=== PATIENT | female | born 1995 | race Caucasian/White ===

== ENCOUNTER → 2022-09-30 08:19 | Outpatient (CLI) | payer OTHER, SELFPAY ==
--- NOTE | ~2022-09-30 | US_ITS ---
EXAMINATION: US breast RT limited HISTORY: Palpable lump of the lower outer quadrant of the right breast TECHNIQUE: Targeted high-resolution ultrasound of the right breast is performed in the area of clinic al concern. FINDINGS: There is a 3.2 x 1.3 cm oval, circumscribed, parallel, hypoechoic mass with no posterior fe atures and mild internal vascularity at the 8:00 location 6.5 cm from the nipple corresponding to the palpable abnormality of concern. No additional cystic or solid mass is identified. 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 Howev er, given the size of the lesion, ultrasound-guided biopsy is recommended. BI-RADS category 4, suspicious findings. Reviewed, dictated and finalized at location A. 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 However, given the size of the lesion, ultrasound-guided biops y is recommended. BI-RADS category 4, suspicious findings.
== END ==
PROVIDERS: PCP Nurse Practitioner; Visit Provider Nurse Practitioner
DX: N63.10 Unspecified lump in the right breast, unspecified quadrant (principal); R92.8 Other abnormal and inconclusive findings on diagnostic imaging of breast
CPT/HCPCS: 76642

== ENCOUNTER 2024-01-21 15:54 | Emergency (ER) | payer OTHER, SELFPAY ==
--- NOTE | ~2024-01-21 | XR_ITS ---
EXAMINATION: XR elbow LT min 3V DATE: 01/21/2024 16:19 INDICATION: Left elbow injury. Pain. TECHNIQUE: 4 views of left elbow were obtained. COMPARISON: None. FINDINGS: Bone alignment is normal. There is an intra-articular fracture of head of radius with less than 1 mm step-off at the articular surface. Joint spaces are normal. There is an elbow joint effusio n. IMPRESSION: 1. Radial head fracture. 2. Elbow joint effusion. Reviewed, dictated and finalized at location E.
--- NOTE | ~2024-01-21 | XR_ITS ---
EXAMINATION: XR wrist LT min 3V DATE: 01/21/2024 16:19 INDICATION: Left wrist injury and pain. TECHNIQUE: 4 views of left wrist were obtained. COMPARISON: None. FINDINGS: Bone alignment is normal. No fracture. Joint spaces are normal. IMPRESSION: 1. Normal left wrist. Reviewed, dictated and finalized at location E. IMPRESSION: 1. Normal left wrist.
--- NOTE | 2024-01-21 16:02 | ED.GENADULT ---
HPI - General Adult General Chief complaint: Extremity Injury, Upper Stated complaint: LT elbow injury Time Seen by Provider: 01/21/24 16:01 Source: patient, RN notes reviewed and old records reviewed Mode of arrival: ambulatory Limitations: no limitations History of Present Illness HPI narrative: 28-year-old female to [facility] for complaint left elbow and left wrist pain. Patient states that she was exiting a vehicle with roller blades on when she lost her balance and fell backward onto her left outstretched hand. Patient reports taking ibuprofen prior to arrival. Patient denies numbness, tingling, prior injury, pertinent medical history, or striking head during fall. Patient endorses limited range of motion at left elbow. Patient in mild distress in exam room due to pain. Respirations even and nonlabored. Patient in no acute distress. Related Data Home Medications Medication Instructions Recorded Confirmed segesterone acet 0.15 mg-ethinyl 1 vag ring vaginal USEASDIRECTD 01/21/24 01/21/24 estradiol 0.013 mg/24 hr vaginal ring ([place]) Allergies Allergy/AdvReac Type Severity Reaction Status Date / Time naproxen Allergy Unknown Verified 01/21/24 16:08 Review of Systems Review of Systems: All systems reviewed & are unremarkable except as noted in HPI and below Constitutional: Constitutional: Reports no additional constitutional complaints Eyes: Eyes: Reports no additional eye complaints ENT: Reports system reviewed and no additional complaints, except as documented Cardiovascular: Cardiovascular: Reports no additional cardiovascular complaints, Denies chest pain and Denies dyspnea Respiratory: Respiratory: Reports no additional respiratory complaints, Denies cough and Denies dyspnea Musculoskeletal: Musculoskeletal: Reports no additional musculoskeletal complaints Neurologic: Reports system reviewed and no additional complaints, except as documented Psychiatric: Psychiatric: Reports no additional psychiatric complaints PMFSH Comments At the time of my signature, I reviewed and agree with the nursing past medical, surgical, social, and family history. There is no relevant family history pertinent to the patient complaint. Exam Const: General: cooperative, healthy appearing, comfortable, no acute distress, alert and well nourished Nutritional Appearance: well nourished Orientation/consciousness: patient oriented x3 Limitations: no limitations HENMT: Head: normal to inspection Ears: external ears normal Face/Nose/Sinus: Normal external nose present, Normal nares present, normal facial exam, No erythema and No edema Face and sinus: normal facial exam, no erythema and no edema Mouth: Yes Normal oral and palatal mucosa present Eyes: General: appearance normal, both eyes and all related structures Neck: Neck: normal visual inspection, full ROM and no meningeal signs Lymphatic: no lymphadenopathy noted and no lymphedema noted Chest: Chest palpation & inspection: normal inspection of the chest Resp: Effort & Inspection: normal respiratory effort and able to speak in complete sentences Auscultation: clear to auscultation bilaterally Cardio: Jugular venous distension: no JVD Rate: regular rate Rhythm: regular rhythm Back/Spine/Pelvis: Cervical Spine: cervical ROM normal Skin: General skin exam: normal color, no rashes or lesions noted and turgor normal Neuro: General: patient oriented x3, gait normal, moves all extremities and no meningeal signs Speech: normal speech Gait exam (Neuro): Normal gait present Extrem: General: normal to inspection, full ROM and capillary refill normal Psych: Appearance: grossly normal and well kempt Course Course Emergency Course: Some parts of this dictation were generated by voice recognition software and may contain typographical and/or grammatical inaccuracies. Level of Care: Express Care Visit Vital Signs Vital signs: Vital Signs Temperat
[2024-01-21 16:24] VITALS: BP 121/91; PULSE 95; RESP 16; TEMP 36.1; O2SAT 100
== END 2024-01-21 16:53 | disposition home or self-care (01) ==
PROVIDERS: Emergency Provider Nurse Practitioner Family
DX: S52.122A Displaced fracture of head of left radius, initial encounter for closed fracture (principal); V00.111A Fall from in-line roller-skates, initial encounter; S63.502A Unspecified sprain of left wrist, initial encounter
CPT/HCPCS: 29105; 73080; 73110; 99214; A4565; G0463

== ENCOUNTER 2024-04-09 08:00 | Outpatient (RCR) | payer OTHER, SELFPAY ==
--- NOTE | 2024-02-09 09:34 | OTOPEVAL1 ---
Assessment and note entered by Favio Dumont, FAY/David, CHT OT Evaluation Information 02/09/24 Diagnosis Displaced fracture of head of left radius Onset 01/21/24 Subjective Information Patient fell while roller skating, sustaining a fracture to the proximal radius. She reports difficulties straightening her elbow and rotating her forearm. At her follow up appointment yesterday, she was instructed to remove her sling and to try to let the arm straighten as much as possible. She reports feeling some muscle tightness and tension in the shoulder and forearm. No pain at rest. Intermittent tingling in the ulnar 2 digits when trying to straighten the arm. Assessment OT Clinical Summary Patient referred to OT ~2.5 weeks following left radial head fracture. She presents with left elbow joint stiffness and gross muscle tightness. Instructed patient in active and passive ROM HEP today for the shoulder, elbow, forearm, wrist, and hand. She demonstrates excellent understanding. She also demonstrates improvements in her motion after just 1 set of the exercises. Plan for continued follow up for use of paraffin/thermal modalities, manual therapy, therapeutic exercise, therapeutic activities, and HEP progression to facilitate optimal functional ROM and flexibility of her left UE. Plan of Care Interventions Therapeutic Exercise,Manual Therapy,Therapeutic Activities,Hot Pack/Cold Pack,Paraffin OT Services Indicated Yes Treatment Frequency and 2x/week for 8 visits Duration These treatments will address the objective and functional deficits as defined above. The patient will be advanced safely and appropriately in order for the patient to progress towards his/her prior level of function. Additional exercises will be introduced and as well as a comprehensive home exercise program upon discharge, if needed, ?to ensure carryover of functional gains achieved in the clinic. This treatment plan has been reviewed and agreement upon by the patient.
--- NOTE | 2024-02-09 09:38 | OPREHPOC ---
Outpatient Therapy Plan of Care This is a Multidisciplinary Plan of Care that may contain components documented by all disciplines (PT, OT, and ST.) OT Problem 1 OT Problem #1 Knowledge Deficit OT Goal 1 Goal / Goal Update 1. Patient to be independent with instructed materials. Target Visit 8 OT Problem 2 OT Problem #2 Impaired Range of Motion OT Goal 1 Goal / Goal Update Patient to improve functional flexibility of the left UE to facilitate return to normal functioning with ADLs: 1. shoulder flexion, abduction, and external rotation to be symmetrical to the right UE with ROM assessment 2. elbow flexion to 135 degrees 3. elbow extension to -5 degree extension lag 4. forearm supination to 50 degrees Target Visit 8
--- NOTE | 2024-03-05 12:08 | OTOPPROG ---
Assessment and note entered by Favio Dumont, FAY/David, CHT OT Progress Update 03/05/24 Assessment Status Progress Diagnosis Displaced fracture of head of left radius Onset 01/21/24 Subjective Information Patient reports improvements, feeling less stiffness. She reports making progress in all joints of her left UE - shoulder, elbow, and forearm are moving better. She continues to be under restriction of no use of her left hand an no passive elbow extension yet. She returns for MD follow up this week. She continues to report intermittent paresthesia in the ulnar 2 digits when fully extending the arm, but that overall it' s not as bad. She has had 2 instances of catching in the elbow, reports no pain with this, just uncomfortable. She also leaves for [place] Mar 10 and returns Mar 19. Assessment OT Clinical Summary Patient referred to OT following left radial head fracture. She has made excellent progress with therapy, improvements noted in all ranges of elbow flexion/extension and forearm rotation. She has been experiencing some ulnar nerve symptoms and has tenderness of the nerve at the cubital tunnel as well as proximally at the intermuscular septum. She is performing self soft tissue mobilization as well as ulnar nerve glides for this. Continued skilled OT indicated for use of paraffin/thermal modalities, manual therapy, therapeutic exercise, therapeutic activities, and HEP progression to facilitate optimal functional ROM and flexibility of her left UE. Plan of Care Interventions Therapeutic Exercise,Manual Therapy,Therapeutic Activities,Hot Pack/Cold Pack,Paraffin OT Services Indicated Yes Treatment Frequency and 1-2x/week for 6 visits Duration These treatments will address the objective and functional deficits as defined above. The patient will be advanced safely and appropriately in order for the patient to progress towards his/her prior level of function. Additional exercises will be introduced and as well as a comprehensive home exercise program upon discharge, if needed, ?to ensure carryover of functional gains achieved in the clinic. This treatment plan has been reviewed and agreement upon by the patient.
--- NOTE | 2024-03-05 12:08 | OPREHPOC ---
Outpatient Therapy Plan of Care This is a Multidisciplinary Plan of Care that may contain components documented by all disciplines (PT, OT, and ST.) OT Problem 1 OT Problem #1 Knowledge Deficit OT Goal 1 Goal / Goal Update 1. Patient to be independent with instructed materials. ---OT POC UPDATE 03/05/24--- 1. Met, continue as HEP is progressed Target Visit 14 OT Problem 2 OT Problem #2 Impaired Range of Motion OT Goal 1 Goal / Goal Update Patient to improve functional flexibility of the left UE to facilitate return to normal functioning with ADLs: 1. shoulder flexion, abduction, and external rotation to be symmetrical to the right UE with ROM assessment 2. elbow flexion to 135 degrees 3. elbow extension to -5 degree extension lag 4. forearm supination to 50 degrees ---OT POC UPDATE 03/05/24--- 1. Met 2. Progressing, continue 3. Progressing, continue 4. Met - Upgrade to 80 deg. Target Visit 14
--- NOTE | 2024-04-09 08:41 | OTOPDC ---
Assessment and note entered by Favio Dumont, OTR/David, CHT OT D/C 04/09/24 Diagnosis Displaced fracture of head of left radius Onset 01/21/24 Subjective Information Patient reports improvements with functional use, she reports she is back to functioning near normal . She notices some residual weakness, for instance , when trying to lift objects that are heavier she can tell her arm isn't back to it's normal strength and she can be a little sore afterwards. She reports no longer experiencing paresthesia in the ulnar 2 digits. Reported Pain Level Additional Pain Score Comments Patient reporting no pain and typically has no pain. She reports intermittent instances of elbow pain that radiates up to the shoulder at times. Assessment OT Clinical Summary Patient referred to OT following left radial head fracture. She has made excellent progress with therapy, ROM of the left elbow and forearm is WNL. She is no longer experiencing ulnar paresthesia. Strength is returning, residual weakness noted. Reviewed strengthening HEP today. Patient demonstrates excellent understanding of all materials. D/C OT with HEP. Plan of Care OT Services Indicated No
== END 2024-04-09 11:50 | disposition home or self-care (01) ==
LOC: ANHOT 08:00
PROVIDERS: Visit Provider Orthopaedic Surgery
DX: S52.122A Displaced fracture of head of left radius, initial encounter for closed fracture (principal)
CPT/HCPCS: 97018; 97110; 97140; 97165